=== PATIENT | male | born 1990 | race African-American/Black ===

== ENCOUNTER 2019-09-07 19:51 | Emergency (ER) | payer MEDICAID ==
[~2019-09-07] VITALS: Ht 172.7 cm; Wt 122.5 kg
--- NOTE | 2019-09-07 20:20 | NUR ---
PT KELLE. REFFERED BY [facility] [place] FOR MEDICAL CLEARANCE. PT DENIES SI AND HI. PLACED ON MONITOR AND PULSE OX. AT BEDSIDE FOR EVAL. WILL COTNINUE TO MONITOR.
--- NOTE | 2019-09-07 20:21 | NUR ---
URINE COLLECTED AND SENT TO LAB
[2019-09-07 20:34] LABS: BASOPHILS % (AUTO) 0.8 % (0.0-2.0); EOSINOPHILS % (AUTO) 5.3 % (0.0-6.0); HEMATOCRIT 41 % (39-51); HEMOGLOBIN 13.8 g/dL (13.5-17.5); LYMPHOCYTES # (AUTO) 1.1 /CMM (0.8-4.8); LYMPHOCYTES % (AUTO) 19.2 % (20.0-44.0); MEAN CORPUSCULAR HGB CONC 34 g/dl (31.0-36.0); MEAN CORPUSCULAR VOLUME 90 fL (80-96); MONOCYTES # (AUTO) 0.5 /CMM (0.1-1.30); MONOCYTES % (AUTO) 9.7 % (2.0-12.0); NEUTROPHILS # (AUTO) 3.6 /CMM (1.8-8.9); PLATELET COUNT (AUTO) 241 /CMM (150-450); RED BLOOD CELL COUNT(AUTO) 4.54 MIL/uL (4.5-6.0); WHITE BLOOD COUNT (AUTO) 5.6 K/uL (4.3-11.0)
[2019-09-07 20:57] LABS: ALANINE AMINOTRANSFERASE 36 U/L (12-78); ALBUMIN 3.8 g/dL (3.4-5.0); ALCOHOL, BLOOD < 3 mg/dL (0-0); ALKALINE PHOSPHATASE 78 U/L (46-116); ASPARTATE AMINOTRANSFERASE 30 U/L (15-37); BILIRUBIN,DIRECT 0.1 mg/dL (0.0-0.2); BILIRUBIN,TOTAL 0.3 mg/dL (0.2-1.0); CALCIUM, SERUM 8.7 mg/dL (8.5-10.1); CARBON DIOXIDE 27 mmol/L (21-32); CHLORIDE 106 mmol/L (98-107); CREATININE 1.5 mg/dL (0.6-1.3); GLUCOSE 84 mg/dL (74-106); POTASSIUM 3.8 mmol/L (3.5-5.1); SODIUM SERUM 142 mmol/L (136-145); TOTAL PROTEIN, SERUM 7.5 g/dL (6.4-8.2); UREA NITROGEN, BLOOD 14 mg/dL (7-18)
[2019-09-07 21:03] LABS: APPEARANCE,URINE Clear (CLEAR); BILIRUBIN,URINE SMALL (NEGATIVE); BLOOD, URINE Negative Ery/uL (NEGATIVE); COLOR,URINE Yellow (YELLOW); KETONES,URINE Negative (NEGATIVE); LEUKOCYTE ESTERASE ,URINE Negative (NEGATIVE); NITRITE, URINE Negative (NEGATIVE); PH,URINE 5.5 (5.0-8.0); PROTEIN,URINE Negative (NEGATIVE); UGLUCOSE Negative (NEGATIVE)
[2019-09-07 21:17] LABS: ACETAMINOPHEN 0 ug/ml (10-30)
[2019-09-07 21:36] LABS: BACTERIA,URINE Few /HPF (None Seen); MUCUS,URINE Moderate /LPF (None Seen); RBC,URINE 0-2 /HPF (0-2); SQUAMOUS EPITHELIAL CELL,UR Few /HPF (None Seen); URINE AMORPHOUS URATE Few /HPF (None Seen); WBC,URINE 0-2 /HPF (0-3)
--- NOTE | 2019-09-07 23:04 | NUR ---
CLINICAL INFORMATION FAXED TO [facility]
--- NOTE | 2019-09-08 01:04 | NUR ---
PER JAGRUTI FROM [facility], NO BED AVAILABLE AT THIS TIME
--- NOTE | 2019-09-08 05:22 | NUR ---
PER JAGRUTI FROM [facility], NO BEDS AVAILABLE AT THIS TIME
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
--- NOTE | 2019-09-08 11:33 | NUR ---
Jania Valentin call report unit [phone] ext [phone] room 203-D
--- NOTE | 2019-09-08 11:41 | NUR ---
patient verballized "I want to run into traffic". MD notified.
--- NOTE | 2019-09-08 13:47 | NUR ---
CALLED [facility] FOR TRANSPORT TO [facility]. ETA 1430.
[2019-09-08 14:54] VITALS: BP 140/78
--- NOTE | 2019-09-08 14:56 | NUR ---
patient picked up by private ambulance via gurney in no distress. denies any pain or discomfort, nor chest pain.
== END 2019-09-08 14:56 ==
LOC: ER 20:01
DX: F39 Unspecified mood [affective] disorder (principal); F20.9 Schizophrenia, unspecified; Z04.6 Encounter for general psychiatric examination, requested by authority
CPT/HCPCS: 36415; 71045; 80048; 80076; 80305; 80307; 80329; 81001; 85025; 99285; G0480; 81000-TC

== ENCOUNTER 2019-09-21 15:49 | Emergency (ER) | payer MEDICAID ==
[~2019-09-21] VITALS: Ht 172.7 cm; Wt 117.9 kg
--- NOTE | 2019-09-21 15:56 | NUR ---
"Depressed went to [place] [facility] was sent over here for medical clearance", to ER bed 12, hooked to monitor, scanned by security, states "to run through traffic". 1:1 sitter at bedside, kept safe and comfortable
--- NOTE | 2019-09-21 16:03 | NUR ---
Dr Shin at bedside
--- NOTE | 2019-09-21 16:15 | NUR ---
URINE SPECIMEN COLLECTED AND SENT TO LAB
[2019-09-21 16:28] LABS: BASOPHILS # (AUTO) 0.1 /CMM (0.0-0.2); BASOPHILS % (AUTO) 2.1 % (0.0-2.0); EOSINOPHILS % (AUTO) 7.1 % (0.0-6.0); HEMATOCRIT 44 % (39-51); HEMOGLOBIN 14.7 g/dL (13.5-17.5); LYMPHOCYTES # (AUTO) 0.7 /CMM (0.8-4.8); LYMPHOCYTES % (AUTO) 13.8 % (20.0-44.0); MEAN CORPUSCULAR HGB CONC 33 g/dl (31.0-36.0); MEAN CORPUSCULAR VOLUME 90 fL (80-96); MONOCYTES # (AUTO) 0.4 /CMM (0.1-1.30); MONOCYTES % (AUTO) 8.2 % (2.0-12.0); NEUTROPHILS # (AUTO) 3.6 /CMM (1.8-8.9); NEUTROPHILS % (AUTO) 68.8 % (43.0-81.0); PLATELET COUNT (AUTO) 243 /CMM (150-450); RED BLOOD CELL COUNT(AUTO) 4.88 MIL/uL (4.5-6.0); WHITE BLOOD COUNT (AUTO) 5.3 K/uL (4.3-11.0)
[2019-09-21 16:29] LABS: APPEARANCE,URINE Clear (CLEAR); BILIRUBIN,URINE SMALL (NEGATIVE); BLOOD, URINE Negative Ery/uL (NEGATIVE); COLOR,URINE Yellow (YELLOW); KETONES,URINE Trace (NEGATIVE); LEUKOCYTE ESTERASE ,URINE Negative (NEGATIVE); NITRITE, URINE Negative (NEGATIVE); PH,URINE 5.5 (5.0-8.0); PROTEIN,URINE 30 mg/dl (NEGATIVE); UGLUCOSE Negative (NEGATIVE)
[2019-09-21 16:37] LABS: BACTERIA,URINE Few /HPF (None Seen); RBC,URINE 0-2 /HPF (0-2); SQUAMOUS EPITHELIAL CELL,UR Few /HPF (None Seen); WBC,URINE 0-2 /HPF (0-3)
[2019-09-21 16:38] LABS: FINE GRANULAR CASTS,URINE Few /LPF (None Seen)
[2019-09-21 16:41] LABS: CALCIUM, SERUM 9.2 mg/dL (8.5-10.1); CREATININE 1.5 mg/dL (0.6-1.3); POTASSIUM 3.5 mmol/L (3.5-5.1)
--- NOTE | 2019-09-21 16:49 | NUR ---
CANDICE BRADY AT [facility] Addendum: 09/21/19 at 1656 by GRACIA SNOW MAKER CAITLYN AT [facility] Addendum: 09/21/19 at 1754 by GRACIA ADMITTING DADA BRADY AT [facility]
[2019-09-21 16:51] LABS: ALBUMIN 4.1 g/dL (3.4-5.0); BILIRUBIN,DIRECT 0.1 mg/dL (0.0-0.2); BILIRUBIN,TOTAL 0.5 mg/dL (0.2-1.0); SALICYLATE 1.2 mg/dL (2.8-20.0); TOTAL PROTEIN, SERUM 8.3 g/dL (6.4-8.2)
--- NOTE | 2019-09-21 17:45 | NUR ---
FOOD TRAY PROVIDED.
--- NOTE | 2019-09-21 17:51 | NUR ---
CLINICAL FAXED TO [facility].
--- NOTE | 2019-09-21 18:09 | NUR ---
DINNER TRAY PROVIDED TO PATIENT, TOLERATING PO WELL.
--- NOTE | 2019-09-21 18:54 | NUR ---
PATIENT IN BED ASLEEP, EASILY AROUSABLE BY VOICE. HOOKED TO MONITOR. 1:1 SITTER AT BEDSIDE. WILL CONTINUE TO MONITOR ACCORDINGLY.
--- NOTE | 2019-09-21 19:02 | NUR ---
REPORT GIVEN TO JAY FOR [facility]
--- NOTE | 2019-09-21 19:31 | NUR ---
PT GOT ACCEPTED AT [facility], UN[address] FIELDS [address] TOLLIVER. # FOR REPORT: [phone]
--- NOTE | 2019-09-21 19:37 | NUR ---
CALLED [facility] TRANSP[facility] TO [facility]. ETA IN 45 MIN
--- NOTE | 2019-09-21 19:57 | NUR ---
REPORT GIVEN TO FRANK PEDRAZA [facility]
[2019-09-21 19:58] VITALS: BP 117/65
--- NOTE | 2019-09-21 20:04 | NUR ---
REPORT GIVENT TO [facility] horticultural farmer
--- NOTE | 2019-09-21 20:19 | NUR ---
PT WAS TRANSFERRED TO [facility] VIA [facility] IN STABLE CONDITION, ALL BELONGINGS PICKED UP.
== END 2019-09-21 20:21 ==
LOC: ER 15:53
DX: R45.851 Suicidal ideations (principal); F32.9 Major depressive disorder, single episode, unspecified; F20.9 Schizophrenia, unspecified
CPT/HCPCS: 36415; 80048; 80076; 80305; 80307; 80329; 81001; 85025; 99285; G0480; 81000-TC

== ENCOUNTER 2020-01-22 20:59 | Emergency (ER) | payer MEDICAID, MEDICARE ==
[~2020-01-22] VITALS: Ht 172.7 cm; Wt 104.3 kg
--- NOTE | 2020-01-22 21:30 | NUR ---
PT CAME TO THE ER C/O SI W/ A PLAN TO SHOOT HIMSELF. SUICIDE PRECAUTIONS IMPLEMENTED. PT DENIES HI. PT AAOX4, VSS, RESPIRATIONS EVEN AND UNLABORED ON RA W/ NAD NOTED. PT CHANGED INTO GOWN, BELONGINGS PLACED TO LOCKER. SITTER AT BEDSIDE FOR SAFETY. CALL LIGHT WITHIN REACH. WILL CONTINUE TO MONITOR
--- NOTE | 2020-01-23 | NUR ---
URINE COLLECTED AND SENT TO LAB
--- NOTE | 2020-01-23 00:05 | NUR ---
EMERGENCY MANAGER AT BEDSIDE FOR BLOOD DRAW
[2020-01-23 00:24] LABS: BASOPHILS # (AUTO) 0.1 /CMM (0.0-0.2); BASOPHILS % (AUTO) 0.9 % (0.0-2.0); EOSINOPHILS % (AUTO) 6.8 % (0.0-6.0); HEMATOCRIT 43 % (39-51); HEMOGLOBIN 14.1 g/dL (13.5-17.5); LYMPHOCYTES # (AUTO) 1.3 /CMM (0.8-4.8); LYMPHOCYTES % (AUTO) 21.1 % (20.0-44.0); MEAN CORPUSCULAR HGB CONC 33 g/dl (31.0-36.0); MEAN CORPUSCULAR VOLUME 89 fL (80-96); MONOCYTES # (AUTO) 0.5 /CMM (0.1-1.30); MONOCYTES % (AUTO) 8.5 % (2.0-12.0); NEUTROPHILS # (AUTO) 3.9 /CMM (1.8-8.9); NEUTROPHILS % (AUTO) 62.7 % (43.0-81.0); PLATELET COUNT (AUTO) 205 /CMM (150-450); RED BLOOD CELL COUNT(AUTO) 4.76 MIL/uL (4.5-6.0); WHITE BLOOD COUNT (AUTO) 6.2 K/uL (4.3-11.0)
[2020-01-23 00:47] LABS: APPEARANCE,URINE CLEAR (CLEAR); BILIRUBIN,URINE NEGATIVE (NEGATIVE); BLOOD, URINE NEGATIVE Ery/uL (NEGATIVE); COLOR,URINE YELLOW (YELLOW); KETONES,URINE NEGATIVE (NEGATIVE); LEUKOCYTE ESTERASE ,URINE NEGATIVE (NEGATIVE); NITRITE, URINE NEGATIVE (NEGATIVE); PROTEIN,URINE NEGATIVE (NEGATIVE); UGLUCOSE NEGATIVE (NEGATIVE)
[2020-01-23 01:04] LABS: ALANINE AMINOTRANSFERASE 30 U/L (12-78); ALBUMIN 3.6 g/dL (3.4-5.0); ALCOHOL, BLOOD < 3 mg/dL (0-0); ALKALINE PHOSPHATASE 69 U/L (46-116); ASPARTATE AMINOTRANSFERASE 27 U/L (15-37); BILIRUBIN,DIRECT 0.1 mg/dL (0.0-0.2); BILIRUBIN,TOTAL 0.2 mg/dL (0.2-1.0); CALCIUM, SERUM 8.9 mg/dL (8.5-10.1); CARBON DIOXIDE 33 mmol/L (21-32); CHLORIDE 105 mmol/L (98-107); CREATININE 1.2 mg/dL (0.6-1.3); GLUCOSE 81 mg/dL (74-106); POTASSIUM 3.5 mmol/L (3.5-5.1); SODIUM SERUM 142 mmol/L (136-145); TOTAL PROTEIN, SERUM 7.4 g/dL (6.4-8.2); UREA NITROGEN, BLOOD 11 mg/dL (7-18)
[2020-01-23 01:06] LABS: SALICYLATE 1.8 mg/dL (2.8-20.0)
[2020-01-23 01:07] LABS: ACETAMINOPHEN < 2 ug/ml (10-30)
[2020-01-23 01:12] LABS: BACTERIA,URINE None seen /HPF (None Seen); CALCIUM OXALATE CRYSTALS,UR Moderate /HPF (None Seen); RBC,URINE 0-2 /HPF (0-2); SQUAMOUS EPITHELIAL CELL,UR Few /HPF (None Seen); WBC,URINE 0-2 /HPF (0-3)
--- NOTE | 2020-01-23 02:41 | NUR ---
CLINICAL FAXED TO [facility] FOR VOLUNTARY PSYCH ADMISSION.
--- NOTE | 2020-01-23 04:34 | NUR ---
PT ACCEPTED TO [facility]. TRANSFER INFORMATION: ACCEPTING MD: DR. WOO NUMBER FOR REPORT: [phone] UNIT 2 REQUESTING TO TRANSFER PATIENT AFTER 0700
--- NOTE | 2020-01-23 04:38 | NUR ---
[facility] ETA 0800
[2020-01-23 06:30] VITALS: BP 114/69
--- NOTE | 2020-01-23 06:34 | NUR ---
REPORT GIVEN TO HENRIQUE CLARK FROM [facility] FOR [facility]
--- NOTE | 2020-01-23 08:06 | NUR ---
REPORT GIVEN TO CIAIO COUNTER MOLDER. PATIENT A/OX4, BREATHING EVEN AND UNLABORED, NO SOB NOTED, BELONGINGS PROVIDED. PATIENT TRANSFERRED TO [facility] IN STABLE CONDITION.
== END 2020-01-23 08:08 ==
LOC: ER 21:05
DX: R45.851 Suicidal ideations (principal); F32.9 Major depressive disorder, single episode, unspecified; F15.10 Other stimulant abuse, uncomplicated; F20.9 Schizophrenia, unspecified
CPT/HCPCS: 36415; 80048; 80076; 80305; 80307; 80329; 81001; 85025; 99285; G0480; 81000-TC